=== PATIENT | female | born 1955 | race Caucasian/White ===

== ENCOUNTER 2017-08-12 12:01 | Emergency (ER) | payer OTHER ==
[2017-08-12 13:09] LABS: #Eosinphils 0.2 thou/uL (0.0-0.7); #Lymphocytes 1.3 thou/uL (1.20-3.40); #Monocytes 0.6 thou/uL (0.11-0.59); #Neutrophils 4.8 thou/uL (1.40-6.50); %Basophils 0.3 % (0.0-1.0); %Eosinophils 2.4 % (0.0-10.0); %Lymphocytes 18.4 % (21.0-51.0); %Monocytes 8.2 % (0.0-10.0); %Neutrophils 70.6 % (42.0-75.0); Mean Corpuscular HGB CONC 34.2 g/dL (32.0-36.0); Mean Corpuscular Hemoglobin 30.9 pg (27.0-31.0); Mean Corpuscular Volume 90.3 fl (81.0-99.0); Mean Platelet Volume 7.6 fL (7.4-10.4); Platelet Count 202 thou/uL (130-400); RBC Distribution Width 12.6 % (11.5-14.5); Red Blood Cell (RBC) Count 5.82 mill/uL (4.20-5.40); White Blood Cell (WBC) Count 6.8 thou/uL (4.8-10.8)
[2017-08-12] MEDS ORDERED: Dicyclomine 20 MG TAB ONE ×2 (13:17→13:24)
[2017-08-12] MEDS ORDERED: Ondansetron HCl/PF 4 MG/2 ML Vial ONE (13:17)
[2017-08-12 13:27] LABS: Lactic Acid 1.2 mmol/L (0.5-2.2)
[2017-08-12 13:32] LABS: ALT (SGPT) 31 U/L (8-55); AST (SGOT) 40 U/L (5-34); Albumin 3.9 g/dL (3.4-4.8); Alkaline Phosphatase 101 U/L (40-150); Anion Gap 17 mmol/L (10-20); BUN (Urea Nitrogen) 13 mg/dL (9.8-20.1); Bilirubin, Total 0.7 mg/dL (0.2-1.2); Calc. Creatinine Clearance 0 mL/min (70-130); Calcium 9.6 mg/dL (7.8-10.44); Carbon Dioxide 20 mmol/L (23-31); Chloride 102 mmol/L (98-107); Estimated GFR-MDRD 75; Globulin 3.5 g/dL (2.4-3.5); Glucose 118 mg/dL (80-115); Lipase 13 U/L (8-78); Potassium 3.6 mmol/L (3.5-5.1); Protein, Total 7.4 g/dL (6.0-8.3); Sodium 135 mmol/L (136-145)
--- NOTE | 2017-08-12 14:46 | CT ---
CT ABDOMEN AND PELVIS WITH IV CONTRAST: 08/12/2017 HISTORY: Lower abdominal pain. Diarrhea. The patient also complains of nausea and bodyaches. COMPARISON: 02/18/2013 FINDINGS: There is minimal linear scarring versus atelectasis in the right lung base. The lung bases are other downey clear. There is a moderate sized hiatal hernia again present. The duodenal diverticula again involves the t hird portion of the duodenum. Post cholecystectomy changes are noted. The spleen, pancrease, bilateral adrenal glands, kidneys, and decompressed urinary bladder demonstrat e a normal CT appearance. There is colonic diverticulosis. Vascular calcifications are seen in the abdominal aorta and iliac arteries. A small fat-containing umbilical hernia is again noted. Surgical clips are seen at the cecal apex. There is no free fluid, fluid collection, or lymphadenopathy seen in the abdomen or pelvis. The prev iously noted wall thickening involving the colon is not seen on the current study. Degenerative willis ges are seen in the spine. IMPRESSION: 1. No acute findings are seen in the abdomen or pelvis. 2. Stable, moderate sized hiatal hernia. 3. Colonic diverticulosis. 4. Fat containing umbilical hernia. 5. Duodenal diverticula. 6. Cholecystectomy. POS: [facility]
== END 2017-08-12 14:55 | disposition home or self-care (01) ==
LOC: ERS 12:01
DX: R19.7 Diarrhea, unspecified (principal); R10.31 Right lower quadrant pain; E11.9 Type 2 diabetes mellitus without complications; I10 Essential (primary) hypertension; E11.40 Type 2 diabetes mellitus with diabetic neuropathy, unspecified; F17.210 Nicotine dependence, cigarettes, uncomplicated; Z79.899 Other long term (current) drug therapy
CPT/HCPCS: 36415; 74177; 80053; 83605; 83690; 85025; 96361; 96374; J2405

== ENCOUNTER 2018-02-16 20:30 | Outpatient (CLI) | payer OTHER | END 2018-02-16 20:31 | disposition home or self-care (01) | LOC: SLEEPLAB 20:30 | PROVIDERS: ATTEND Student in an Organized Health Care Education/Training Program | DX: G47.33 Obstructive sleep apnea (adult) (pediatric) (principal); G25.81 Restless legs syndrome; G47.61 Periodic limb movement disorder; R53.83 Other fatigue; R51 Headache; R06.83 Snoring; G47.10 Hypersomnia, unspecified; G47.00 Insomnia, unspecified; F41.9 Anxiety disorder, unspecified; J44.9 Chronic obstructive pulmonary disease, unspecified; I10 Essential (primary) hypertension; R00.0 Tachycardia, unspecified; E66.9 Obesity, unspecified; Z68.38 Body mass index [BMI] 38.0-38.9, adult | CPT/HCPCS: 95811 ==

== ENCOUNTER 2018-03-08 14:18 | Outpatient (CLI) | payer OTHER ==
--- NOTE | 2018-03-08 16:32 | RAD ---
TWO VIEWS CHEST: Date: 03-08-18 Provided Clinical History: Dyspnea. FINDINGS: Comparison 01-04-10. Cardiac and mediastinal silhouette is within normal limits. Vascular calcification involves the aorti c arch. Moderate to large hiatal hernia is again seen. The lungs appear clear. No pleural fluid or pn eumothorax apparent. Degenerative changes are seen involving the thoracic spine. IMPRESSION: 1. No evidence for an acute cardiopulmonary process. 2. Hiatal hernia. 3. Atherosclerosis. POS: [facility]
== END 2018-03-08 14:19 | disposition home or self-care (01) ==
LOC: RAD 14:18
PROVIDERS: ATTEND Internal Medicine Pulmonary Disease
DX: R06.00 Dyspnea, unspecified (principal); K44.9 Diaphragmatic hernia without obstruction or gangrene; I70.0 Atherosclerosis of aorta
CPT/HCPCS: 71046

== ENCOUNTER 2018-04-26 16:24 | Emergency (ER) | payer OTHER ==
[2018-04-26] MEDS ORDERED: Diazepam 5 MG TAB ONE (18:05)
[2018-04-26] MEDS ORDERED: Ondansetron ODT 4 MG TAB ONE (18:05)
[2018-04-26] MEDS ORDERED: Dexamethasone 10 MG/ML VIAL ONE (18:06)
[2018-04-26] MEDS ORDERED: Morphine 10 MG/ML VIAL ONE (18:06)
--- NOTE | 2018-04-26 18:57 | ULT ---
LEFT LOWER EXTREMITY VENOUS DUPLEX EXAM: 04/26/18 HISTORY: Left lower extremity pain. Real arminda color doppler evaluation of the left lower extremity was performed from groin to calf. This includes evaluation of common femoral, superficial, and profunda femoral, saphenous, popliteal and p osterior tibial veins. This shows a patent deep venous system. There is normal compressibility and au gmentation. There is no evidence of DVT. IMPRESSION: No evidence of DVT of the left lower extremity. POS: [facility]
== END 2018-04-26 18:40 | disposition home or self-care (01) ==
LOC: ERS 16:24
DX: M54.16 Radiculopathy, lumbar region (principal); E11.40 Type 2 diabetes mellitus with diabetic neuropathy, unspecified; I10 Essential (primary) hypertension; F17.210 Nicotine dependence, cigarettes, uncomplicated; Z79.899 Other long term (current) drug therapy
CPT/HCPCS: 96372; J1100; J2270; Q0162

== ENCOUNTER 2018-06-22 09:23 | Outpatient (CLI) | payer OTHER ==
--- NOTE | 2018-06-22 12:13 | MRI ---
MRI LUMBAR SPINE NONCONTRAST: 06/22/2018 HISTORY: A 63-year-old female with M54.16, lumbar radiculopathy and chronic low back pain (radiating to left l ower extremity). COMPARISON: 04/28/2016 FINDINGS: For the purposes of this report, it will be assumed that there are five lumbar type vertebrae. There is a new finding of modic type I endplate marrow edema at the anterior-inferior corner of the T 12 vertebral body, the anterior-inferior corner of the L1 vertebral body, and the anterior-superior c orner of the L2 vertebral body, new since the previous MRI. Vertebral body heights are maintained. No major scoliosis. Disk space narrowing is somewhat severe at L4-L5, where there is endplate irregu larity and modic type II changes. Disk space narrowing is mild at L5-S1 and at T12-L1. The disk spa ce narrowing is mild to moderate at L2-L3 and L3-L4. The distribution of disk space narrowing is sim ilar to that of the prior MRI. The conus medullaris terminates at L1. T12-L1: Minimal disk bulge. Otherwise normal. L1-L2: Mild to moderate disk bulge. No significant central spinal canal stenosis. Posterior epidur al fat pad. Mild to moderate thecal sac stenosis. Moderate bilateral neural foraminal stenosis. L2-L3: Mild diffuse disk bulge. Mild ligamentum flavum thickening. Predominantly mild degenerative facet changes, left greater than right. Mild central spinal canal stenosis. Posterior epidural fat pad. Moderate thecal sac stenosis. Mild to moderate bilateral neural foraminal stenosis, left grea ter than right. No significant interval change. L3-L4: Mild diffuse disk bulge. Moderate bilateral degenerative facet changes. Mild right neural f oraminal stenosis. Mild to moderate left neural foraminal stenosis. Mild central spinal canal steno sis. Posterior epidural fat pad. Mild to moderate thecal sac stenosis. No interval change. L4-L5: Diffuse disk bulge-broad osteophytic bar complex. Mild right neural foraminal stenosis. Mod erate left neural foraminal stenosis. Mild central spinal canal stenosis. Posterior epidural fat pa d. Mild to moderate thecal sac stenosis. Lateral recess stenosis bilaterally. No significant inter pato change. L5-S1: Severe bilateral degenerative facet disease. No significant right neural foraminal stenosis. Moderate left neural foraminal stenosis. Mild lateral recess stenosis bilaterally and mild central spinal canal stenosis. No significant interval change. IMPRESSION: 1. Lumbar spondylosis with multilevel degenerative disk disease of varying degrees (greatest at L4-L 5, moderate), and facet osteoarthrosis (worst at L5-S1, severe). 2. Varying degrees of central, neural foraminal, and lateral recess stenosis, as described above, bu t none severe. 3. Interval development of modic type I endplate marrow changes at T12-L1 and L1-L2. 4. No other interval change since 04/28/2016. RICARDO Young POS: [facility]
== END 2018-06-22 09:24 | disposition home or self-care (01) ==
LOC: BICMRI 09:23
PROVIDERS: ATTEND Neurological Surgery
DX: M47.26 Other spondylosis with radiculopathy, lumbar region (principal); M47.27 Other spondylosis with radiculopathy, lumbosacral region; M48.061 Spinal stenosis, lumbar region without neurogenic claudication
CPT/HCPCS: 72148

== ENCOUNTER 2019-02-20 13:18 | Emergency (ER) | payer OTHER ==
--- NOTE | 2019-02-20 14:13 | RAD ---
XR Forearm Lt 2 View STANDARD: 02/20/2019 1:22 PM CLINICAL INDICATION: Fall with pain COMPARISON: None. FINDINGS: Fracture:There is subtle fracture lucency of the articular surface of the distal radius, and underlyi ng the radial styloid. Arthropathy:Moderate osteoarthritis is seen, at the radial aspect of the wrist and base of hand. Chronic appearing periosteal irregularity of the ulnar diaphysis. Correlate for history of prior inju ry. Incidental findings:None of significance. IMPRESSION: Distal radial fracture. Recommend dedicated left wrist radiograph series for further evaluation.
--- NOTE | 2019-02-20 14:14 | RAD ---
Exam: XR Wrist 3 Lt View STANDARD HISTORY: Swelling and pain to left wrist. Patient injured left wrist after a fall. COMPARISON: None FINDINGS: There is a fracture involving the radial styloid process with trace lateral displacement of the fract ure fragment with intra-articular extension of the fracture and trace intra-articular step-off. No additional fracture is appreciated, and there is no evidence of dislocation. Prominent osteoarthritis involves the first carpal metacarpal joint. Mild subcutaneous soft tissue swelling is seen about the wrist. IMPRESSION: Fracture of the radial styloid process which does result in intra-articular extension of the fracture .
[2019-02-20] MEDS ORDERED: HYDROcodone/Acetaminophen 7.5/325 mg Tablet ONE (14:57)
[2019-02-20] MEDS ORDERED: Ketorolac Tromethamine 30 MG/ML VIAL ONE (14:57)
== END 2019-02-20 16:07 | disposition home or self-care (01) ==
LOC: ERS 13:18
DX: S52.512A Displaced fracture of left radial styloid process, initial encounter for closed fracture (principal); Z71.6 Tobacco abuse counseling; E11.9 Type 2 diabetes mellitus without complications; I10 Essential (primary) hypertension; E11.40 Type 2 diabetes mellitus with diabetic neuropathy, unspecified; F17.210 Nicotine dependence, cigarettes, uncomplicated; Z79.899 Other long term (current) drug therapy; W01.0XXA Fall on same level from slipping, tripping and stumbling without subsequent striking against object, initial encounter
CPT/HCPCS: 29125; 96372; 99406; J1885

== ENCOUNTER 2020-03-12 15:18 | Outpatient (CLI) | payer MEDICARE, MEDICAID ==
--- NOTE | 2020-03-12 15:47 | RAD ---
EXAM: 3 views of the left knee HISTORY: Knee pain COMPARISON: None FINDINGS: A small knee effusion is seen. There is no evidence of acute fracture or dislocation. Mild tricompartmental degenerative changes are seen. No soft tissue swelling is present. IMPRESSION: Mild left knee osteoarthritis
== END 2020-03-12 15:19 | disposition home or self-care (01) ==
LOC: BICRAD 15:18
PROVIDERS: ATTEND Registered Nurse
DX: M25.562 Pain in left knee (principal); M17.12 Unilateral primary osteoarthritis, left knee

== ENCOUNTER 2021-07-21 21:02 | Emergency (ER) | payer MEDICARE, MEDICAID ==
[2021-07-21] MEDS ORDERED: Ondansetron PF 4 MG/2 ML Vial ONE ×2 (21:20→22:27)
[2021-07-21 21:40] LABS: #Basophils 0.1 thou/uL (0.0-0.2); #Lymphocytes 1.2 thou/uL (1.20-3.40); #Monocytes 0.7 thou/uL (0.11-0.59); #Neutrophils 11.2 thou/uL (1.40-6.50); %Basophils 0.4 % (0.0-1.0); %Eosinophils 0.3 % (0.0-10.0); %Lymphocytes 9.1 % (21.0-51.0); %Neutrophils 85.2 % (42.0-75.0); Hemoglobin 14.9 g/dL (12.0-16.0); Mean Corpuscular HGB CONC 32.6 g/dL (32.0-36.0); Mean Corpuscular Hemoglobin 31.4 pg (27.0-31.0); Mean Corpuscular Volume 96.2 fL (78.0-98.0); Platelet Count 235 thou/uL (130-400); RBC Distribution Width 13.4 % (11.5-14.5); Red Blood Cell (RBC) Count 4.75 mill/uL (4.20-5.40); White Blood Cell (WBC) Count 13.1 thou/uL (4.8-10.8)
[2021-07-21 21:59] LABS: ALT (SGPT) 11 U/L (8-55); AST (SGOT) 15 U/L (5-34); Albumin 3.5 g/dL (3.4-4.8); Alkaline Phosphatase 117 U/L (40-110); Anion Gap 13 mmol/L (10-20); BUN (Urea Nitrogen) 12 mg/dL (9.8-20.1); Bilirubin, Total 0.7 mg/dL (0.2-1.2); Calc. Creatinine Clearance 0 mL/min (70-130); Calcium 9.3 mg/dL (7.8-10.44); Carbon Dioxide 26 mmol/L (23-31); Chloride 104 mmol/L (98-107); Globulin 3.7 g/dL (2.4-3.5); Glucose 126 mg/dL (80-115); Lipase 17 U/L (8-78); Potassium 3.4 mmol/L (3.5-5.1); Protein, Total 7.2 g/dL (5.8-8.1); Sodium 140 mmol/L (136-145)
[2021-07-21 22:09] LABS: Bacteria/HPF None Seen HPF (None Seen); Bilirubin Negative (Negative); Blood, Urine Negative (Negative); Clarity Turbid (Clear); Glucose, Urine (Dipstick) Normal (Negative); Ketone, Urine 10 mg/dL (Negative); Leukocyte Negative Leu/uL (Negative); Nitrite Negative (Negative); Protein, Urine (Dipstick) 30 mg/dL (Neg-Trace); RBC/HPF 0-3 HPF (0-3); Specific Gravity, Urine 1.016 (1.002-1.036); Squamous Epithelial 0-3 HPF (0-3); Urobilinogen Normal mg/dL (Less than 2); WBC/HPF 0-3 HPF (0-3)
== END 2021-07-21 23:59 | disposition home or self-care (01) ==
LOC: ERS 21:02
DX: A08.4 Viral intestinal infection, unspecified (principal); I10 Essential (primary) hypertension; F17.210 Nicotine dependence, cigarettes, uncomplicated; E11.40 Type 2 diabetes mellitus with diabetic neuropathy, unspecified
CPT/HCPCS: 36415; 36416; 51701; 80053; 81003; 81015; 83605; 83690; 85025; 96374; 96376; J2405

== ENCOUNTER 2021-09-12 22:06 | Emergency (ER) | payer MEDICARE, MEDICAID ==
[~2021-09-12 22:06] MED LIST: Iopamidol-370 76% 500 ML 1 ML ONE
[2021-09-12 23:09] LABS: ALT (SGPT) 10 U/L (8-55); AST (SGOT) 11 U/L (5-34); Albumin 3.8 g/dL (3.4-4.8); Alkaline Phosphatase 126 U/L (40-110); Anion Gap 12 mmol/L (10-20); BUN (Urea Nitrogen) 15 mg/dL (9.8-20.1); Calc. Creatinine Clearance 0 mL/min (70-130); Calcium 9.6 mg/dL (7.8-10.44); Carbon Dioxide 25 mmol/L (23-31); Chloride 103 mmol/L (98-107); Globulin 3.6 g/dL (2.4-3.5); Glucose 121 mg/dL (80-115); Lipase 12 U/L (8-78); Potassium 3.4 mmol/L (3.5-5.1); Protein, Total 7.4 g/dL (5.8-8.1); Sodium 137 mmol/L (136-145)
[2021-09-12 23:10] LABS: Band 5 % (5-11); Hemoglobin 15.8 g/dL (12.0-16.0); Lymphocytes 6 % (21-51); MDiff Complete? YES; Mean Corpuscular HGB CONC 32.2 g/dL (32.0-36.0); Mean Corpuscular Hemoglobin 29.7 pg (27.0-31.0); Mean Corpuscular Volume 92.2 fL (78.0-98.0); Mean Platelet Volume 7.1 fL (7.4-10.4); Monocytes 6 % (0-10); Neutrophil 82 % (42-75); Platelet Count 280 thou/uL (130-400); RBC Distribution Width 13.2 % (11.5-14.5); Red Blood Cell (RBC) Count 5.33 mill/uL (4.20-5.40); White Blood Cell (WBC) Count 21.1 thou/uL (4.8-10.8)
[2021-09-12] MEDS ORDERED: Ondansetron PF 4 MG/2 ML Vial ONE (23:48)
[2021-09-12] MEDS ORDERED: Morphine 4 MG/ML VIAL ONE (23:48)
[2021-09-13 01:14] LABS: Bilirubin Negative (Negative); Blood, Urine Negative (Negative); Clarity Clear (Clear); Glucose, Urine (Dipstick) Normal (Negative); Ketone, Urine Negative (Negative); Leukocyte Negative Leu/uL (Negative); Nitrite Negative (Negative); Protein, Urine (Dipstick) Negative (Neg-Trace); Urobilinogen Normal mg/dL (Less than 2)
[2021-09-13 01:16] LABS: Specific Gravity, Urine Greater than 1.060 (1.002-1.036)
[2021-09-13 02:44] LABS: Lactic Acid 1.1 mmol/L (0.5-2.2)
== END 2021-09-13 03:08 | disposition home or self-care (01) ==
LOC: ERS 22:06
DX: R11.2 Nausea with vomiting, unspecified (principal); R10.10 Upper abdominal pain, unspecified; R10.816 Epigastric abdominal tenderness; R10.812 Left upper quadrant abdominal tenderness; M86.9 Osteomyelitis, unspecified; M06.9 Rheumatoid arthritis, unspecified; I10 Essential (primary) hypertension; E11.40 Type 2 diabetes mellitus with diabetic neuropathy, unspecified; F17.210 Nicotine dependence, cigarettes, uncomplicated
CPT/HCPCS: 36415; 36416; 74177; 80053; 81003; 83605; 83690; 85025; 87040; 87086; 96374; 96375; J2270; J2405; Q9967

== ENCOUNTER 2021-10-22 15:19 | Observation (INO) | payer MEDICARE, MEDICAID ==
[2021-10-22 16:43] LABS: #Basophils 0.1 thou/uL (0.0-0.2); #Lymphocytes 1.3 thou/uL (1.20-3.40); #Monocytes 0.5 thou/uL (0.11-0.59); #Neutrophils 8.9 thou/uL (1.40-6.50); %Basophils 0.6 % (0.0-1.0); %Eosinophils 0.1 % (0.0-10.0); %Lymphocytes 11.8 % (21.0-51.0); %Monocytes 4.4 % (0.0-10.0); %Neutrophils 83.1 % (42.0-75.0); Mean Corpuscular HGB CONC 33.3 g/dL (32.0-36.0); Mean Corpuscular Hemoglobin 30.2 pg (27.0-31.0); Mean Corpuscular Volume 90.8 fL (78.0-98.0); Mean Platelet Volume 7.2 fL (7.4-10.4); Platelet Count 323 thou/uL (130-400); RBC Distribution Width 14.4 % (11.5-14.5); Red Blood Cell (RBC) Count 5.29 mill/uL (4.20-5.40); White Blood Cell (WBC) Count 10.7 thou/uL (4.8-10.8)
[2021-10-22 17:16] LABS: ALT (SGPT) 11 U/L (8-55); AST (SGOT) 16 U/L (5-34); Albumin 3.7 g/dL (3.4-4.8); Alkaline Phosphatase 127 U/L (40-110); Anion Gap 14 mmol/L (10-20); BUN (Urea Nitrogen) 9 mg/dL (9.8-20.1); Bilirubin, Total 0.8 mg/dL (0.2-1.2); CK (CPK) 30 U/L (29-168); Calc. Creatinine Clearance 0 mL/min (70-130); Calcium 9.7 mg/dL (7.8-10.44); Carbon Dioxide 31 mmol/L (23-31); Chloride 101 mmol/L (98-107); Globulin 3.7 g/dL (2.4-3.5); Glucose 147 mg/dL (80-115); Magnesium 1.7 mg/dL (1.6-2.6); Potassium 3.1 mmol/L (3.5-5.1); Protein, Total 7.4 g/dL (5.8-8.1); Sodium 143 mmol/L (136-145)
[2021-10-22] MEDS ORDERED: Potassium Chloride 20 MEQ TAB ONE (18:12)
[2021-10-22] MEDS ORDERED: Magnesium 2 GM/50 ML(in water) 2 GM in Premix Bag 1 BAG IVPB SCH (18:30)
[2021-10-22 19:38] LABS: Bilirubin Negative (Negative); Blood, Urine Negative (Negative); Clarity Clear (Clear); Glucose, Urine (Dipstick) Normal (Negative); Ketone, Urine 10 mg/dL (Negative); Leukocyte Negative Leu/uL (Negative); Nitrite Negative (Negative); Protein, Urine (Dipstick) 30 mg/dL (Neg-Trace); RBC/HPF 0-3 HPF (0-3); Specific Gravity, Urine 1.015 (1.002-1.036); Squamous Epithelial 0-3 HPF (0-3); Urobilinogen Normal mg/dL (Less than 2); WBC/HPF 0-3 HPF (0-3); pH, Urine 8.5 (5.0-9.0)
[2021-10-22 19:48] LABS: Bacteria/HPF Rare-Few HPF (None Seen)
[2021-10-22] MEDS ORDERED: Pantoprazole 40 MG VIAL ONE (20:14)
[2021-10-22] MEDS ORDERED: Magnesium Sulfate 2 GM in Sodium Chloride 0.9% 100 ML IVPB SCH (20:15)
[2021-10-22] MEDS ORDERED: HumaLOG 300 UNITS/3 ML VIAL SC PRN ×2 (22:28)
[2021-10-22] MEDS ORDERED: Dextrose 5% in Water 1,000 ML IV PRN (22:28)
[2021-10-22] MEDS ORDERED: Dextrose 50% Abboject 50 ML SYRINGE SLOW IVP PRN (22:28)
[2021-10-22] MEDS ORDERED: Ondansetron ODT 4 MG TAB PO PRN (22:28)
[2021-10-22] MEDS ORDERED: Lactated Ringer's 1,000 ML IV SCH (22:45)
[2021-10-22 22:52] LABS: Amphetamine Not Detected (NotDetected); Barbiturates Screen Not Detected (NotDetected); Benzodiazepine Screen Not Detected (NotDetected); Cocaine Metabolite Screen Not Detected (NotDetected); Methadone Not Detected (NotDetected); Methamphetamine Not Detected (NotDetected); Opiate Screen Detected (NotDetected); Oxycodone Screen Not Detected (NotDetected); Phencyclidine (PCP) Not Detected (NotDetected); THC/Cannabinoid Screen Not Detected (NotDetected); Tricyclic Screen Not Detected (NotDetected)
[2021-10-22 23:47] VITALS: BMI 25.7
[2021-10-23 04:51] LABS: #Eosinphils 0.1 thou/uL (0.0-0.7); #Lymphocytes 1.8 thou/uL (1.20-3.40); #Monocytes 0.6 thou/uL (0.11-0.59); #Neutrophils 8.9 thou/uL (1.40-6.50); %Basophils 0.4 % (0.0-1.0); %Eosinophils 0.5 % (0.0-10.0); %Monocytes 5.4 % (0.0-10.0); %Neutrophils 77.7 % (42.0-75.0); Hemoglobin 14.5 g/dL (12.0-16.0); Mean Corpuscular HGB CONC 32.9 g/dL (32.0-36.0); Mean Corpuscular Hemoglobin 30.8 pg (27.0-31.0); Mean Corpuscular Volume 93.7 fL (78.0-98.0); Mean Platelet Volume 7.2 fL (7.4-10.4); Platelet Count 269 thou/uL (130-400); RBC Distribution Width 14.3 % (11.5-14.5); White Blood Cell (WBC) Count 11.4 thou/uL (4.8-10.8)
[2021-10-23 05:10] LABS: ALT (SGPT) 9 U/L (8-55); AST (SGOT) 14 U/L (5-34); Albumin 3.2 g/dL (3.4-4.8); Alkaline Phosphatase 102 U/L (40-110); Anion Gap 11 mmol/L (10-20); BUN (Urea Nitrogen) 8 mg/dL (9.8-20.1); Bilirubin, Total 0.7 mg/dL (0.2-1.2); Calc. Creatinine Clearance 82 mL/min (70-130); Calcium 8.6 mg/dL (7.8-10.44); Carbon Dioxide 25 mmol/L (23-31); Chloride 106 mmol/L (98-107); Glucose 108 mg/dL (80-115); Magnesium 2.1 mg/dL (1.6-2.6); Potassium 3.1 mmol/L (3.5-5.1); Protein, Total 6.2 g/dL (5.8-8.1); Sodium 139 mmol/L (136-145)
[2021-10-23 05:30] LABS: Phosphorus 3.2 mg/dL (2.3-4.7)
[2021-10-23] MEDS ORDERED: Potassium Chloride 20 MEQ in Premix Bag 1 BAG IVPB SCH (07:00)
[2021-10-23 07:55] VITALS: BP 174/97; TEMP 98.2
[2021-10-23] MEDS ORDERED: Pantoprazole 40 MG VIAL IVP SCH (09:00)
[2021-10-23] MEDS ORDERED: Lisinopril 10 MG TAB PO SCH (09:00)
== END 2021-10-23 10:45 | disposition left against medical advice (07) ==
LOC: ERS 15:19 → 2SW 20:33
PROVIDERS: ADMIT Student in an Organized Health Care Education/Training Program; ATTEND Student in an Organized Health Care Education/Training Program
DX: K92.0 Hematemesis (principal); Z53.29 Procedure and treatment not carried out because of patient's decision for other reasons; R41.82 Altered mental status, unspecified; E83.42 Hypomagnesemia; E87.6 Hypokalemia; M79.7 Fibromyalgia; Z20.822 Contact with and (suspected) exposure to COVID-19; E11.9 Type 2 diabetes mellitus without complications; E78.5 Hyperlipidemia, unspecified; I10 Essential (primary) hypertension; F17.210 Nicotine dependence, cigarettes, uncomplicated; Z79.899 Other long term (current) drug therapy; Z88.5 Allergy status to narcotic agent
CPT/HCPCS: 70450; 71045; 80053; 80306; 82550; 82962; 83735 ×2; 84100; 84484; 85025; 93005; 96361; 96365; 96375; 97139 ×4; 99285; G0378 ×3; U0003; U0005; 36415; 36416; 81003; 81015; 84443; C9113; J3475; J3490; J7120

== ENCOUNTER 2021-12-12 13:41 | Outpatient (CLI) | payer MEDICARE, MEDICAID | END 2021-12-12 13:42 | disposition home or self-care (01) | LOC: LABBT 13:41 | PROVIDERS: ATTEND Internal Medicine Gastroenterology | DX: Z01.812 Encounter for preprocedural laboratory examination (principal); Z20.822 Contact with and (suspected) exposure to COVID-19 | CPT/HCPCS: 87811 ==

== ENCOUNTER → 2021-12-17 | Day surgery (SDC) | payer MEDICARE, MEDICAID | END | disposition home or self-care (01) | LOC: SDC 08:04 | PROVIDERS: ATTEND Internal Medicine Gastroenterology | DX: K44.9 Diaphragmatic hernia without obstruction or gangrene (principal); R11.2 Nausea with vomiting, unspecified; Z88.5 Allergy status to narcotic agent | CPT/HCPCS: 91010 ==

== ENCOUNTER 2021-12-24 14:02 | Outpatient (CLI) | payer MEDICARE, OTHER | END 2021-12-24 14:03 | disposition home or self-care (01) | LOC: ULT 14:02 | PROVIDERS: ATTEND Physician Assistant Medical | DX: K21.9 Gastro-esophageal reflux disease without esophagitis (principal); R60.0 Localized edema ==

== ENCOUNTER 2022-01-05 07:43 | Outpatient (CLI) | payer MEDICARE, OTHER | END 2022-01-05 07:44 | disposition home or self-care (01) | LOC: NM 07:43 | PROVIDERS: ATTEND Internal Medicine Gastroenterology | DX: R11.2 Nausea with vomiting, unspecified (principal) | CPT/HCPCS: 78264; A9541 ==

== ENCOUNTER 2022-01-19 14:37 | Outpatient (CLI) | payer MEDICARE, MEDICAID | END 2022-01-19 14:38 | disposition home or self-care (01) | LOC: LABBT 14:37 | PROVIDERS: ATTEND Internal Medicine Gastroenterology | DX: R11.2 Nausea with vomiting, unspecified (principal); Z20.822 Contact with and (suspected) exposure to COVID-19 | CPT/HCPCS: 87811 ==

== ENCOUNTER 2022-01-22 09:33 | Outpatient (CLI) | payer MEDICARE, MEDICAID | END 2022-01-22 09:34 | disposition home or self-care (01) | LOC: RAD 09:33 | PROVIDERS: ATTEND Internal Medicine Gastroenterology | DX: R11.2 Nausea with vomiting, unspecified (principal); R63.4 Abnormal weight loss; K44.9 Diaphragmatic hernia without obstruction or gangrene; K21.9 Gastro-esophageal reflux disease without esophagitis; K57.10 Diverticulosis of small intestine without perforation or abscess without bleeding; K22.89 Other specified disease of esophagus | CPT/HCPCS: 74220 ==

== ENCOUNTER 2022-02-03 23:07 | Emergency (ER) | payer MEDICARE, OTHER ==
[2022-02-04] MEDS ORDERED: Ketorolac Tromethamine 30 MG/ML VIAL ONE (00:43)
[2022-02-04] MEDS ORDERED: Vancomycin 1 GM/200 ML BAG ONE (00:54)
[2022-02-04 01:12] LABS: #Eosinphils 0.4 thou/uL (0.0-0.7); #Lymphocytes 2.7 thou/uL (1.20-3.40); #Monocytes 0.4 thou/uL (0.11-0.59); #Neutrophils 3.4 thou/uL (1.40-6.50); %Basophils 0.5 % (0.0-1.0); %Eosinophils 5.5 % (0.0-10.0); %Lymphocytes 39.4 % (21.0-51.0); %Monocytes 5.6 % (0.0-10.0); Hemoglobin 14.4 g/dL (12.0-16.0); Mean Corpuscular HGB CONC 32.8 g/dL (32.0-36.0); Mean Corpuscular Hemoglobin 31.6 pg (27.0-31.0); Mean Corpuscular Volume 96.2 fL (78.0-98.0); Mean Platelet Volume 7.5 fL (7.4-10.4); Platelet Count 282 thou/uL (130-400); RBC Distribution Width 12.8 % (11.5-14.5); Red Blood Cell (RBC) Count 4.55 mill/uL (4.20-5.40); White Blood Cell (WBC) Count 6.9 thou/uL (4.8-10.8)
[2022-02-04 01:33] LABS: ALT (SGPT) 11 U/L (8-55); AST (SGOT) 15 U/L (5-34); Albumin 3.4 g/dL (3.4-4.8); Alkaline Phosphatase 150 U/L (40-110); Anion Gap 11 mmol/L (10-20); BUN (Urea Nitrogen) 7 mg/dL (9.8-20.1); Bilirubin, Total 0.4 mg/dL (0.2-1.2); Calc. Creatinine Clearance 0 mL/min (70-130); Carbon Dioxide 29 mmol/L (23-31); Chloride 101 mmol/L (98-107); Estimated GFR 92; Globulin 3.6 g/dL (2.4-3.5); Glucose 122 mg/dL (80-115); Potassium 3.9 mmol/L (3.5-5.1); Sodium 137 mmol/L (136-145)
== END 2022-02-04 02:14 | disposition home or self-care (01) ==
LOC: ERS 23:07
DX: L03.115 Cellulitis of right lower limb (principal); E11.40 Type 2 diabetes mellitus with diabetic neuropathy, unspecified; I10 Essential (primary) hypertension
CPT/HCPCS: 36415; 80053; 85025; 86140; 87040; 96365; 96375; J1885; J3370

== ENCOUNTER 2022-02-14 22:37 | Emergency (ER) | payer MEDICARE, OTHER ==
[2022-02-14] MEDS ORDERED: Ondansetron PF 4 MG/2 ML Vial ONE (23:08)
[2022-02-14 23:22] LABS: #Lymphocytes 1.1 thou/uL (1.20-3.40); #Monocytes 0.9 thou/uL (0.11-0.59); #Neutrophils 13.6 thou/uL (1.40-6.50); %Basophils 0.2 % (0.0-1.0); %Eosinophils 0.2 % (0.0-10.0); %Lymphocytes 7.1 % (21.0-51.0); %Monocytes 5.6 % (0.0-10.0); %Neutrophils 86.9 % (42.0-75.0); Hemoglobin 17.5 g/dL (12.0-16.0); Mean Corpuscular HGB CONC 33.3 g/dL (32.0-36.0); Mean Corpuscular Hemoglobin 32.5 pg (27.0-31.0); Mean Corpuscular Volume 97.6 fL (78.0-98.0); Mean Platelet Volume 7.8 fL (7.4-10.4); Platelet Count 279 thou/uL (130-400); RBC Distribution Width 13.1 % (11.5-14.5); White Blood Cell (WBC) Count 15.6 thou/uL (4.8-10.8)
[2022-02-14 23:47] LABS: ALT (SGPT) 10 U/L (8-55); AST (SGOT) 27 U/L (5-34); Albumin 3.8 g/dL (3.4-4.8); Alkaline Phosphatase 163 U/L (40-110); Anion Gap 23 mmol/L (10-20); BUN (Urea Nitrogen) 9 mg/dL (9.8-20.1); Calc. Creatinine Clearance 0 mL/min (70-130); Calcium 9.7 mg/dL (7.8-10.44); Carbon Dioxide 22 mmol/L (23-31); Chloride 102 mmol/L (98-107); Estimated GFR 92; Globulin 4.1 g/dL (2.4-3.5); Glucose 166 mg/dL (80-115); Lipase 10 U/L (8-78); Potassium 4.7 mmol/L (3.5-5.1); Protein, Total 7.9 g/dL (5.8-8.1); Sodium 142 mmol/L (136-145)
[2022-02-15 00:21] LABS: CKMB 1.8 ng/mL (0-6.6)
== END 2022-02-14 23:25 | disposition left against medical advice (07) ==
LOC: ERS 22:37
DX: R11.10 Vomiting, unspecified (principal); R10.9 Unspecified abdominal pain; F17.210 Nicotine dependence, cigarettes, uncomplicated; E11.9 Type 2 diabetes mellitus without complications; I10 Essential (primary) hypertension
CPT/HCPCS: 36415; 74177; 80053; 82553; 83690; 84484; 85025; J2405; Q9967

== ENCOUNTER 2022-05-26 18:37 | Emergency (ER) | payer MEDICARE, MEDICAID ==
[2022-05-26 19:51] LABS: #Eosinphils 0.2 thou/uL (0.0-0.7); #Lymphocytes 1.9 thou/uL (1.20-3.40); #Monocytes 0.7 thou/uL (0.11-0.59); #Neutrophils 6.5 thou/uL (1.40-6.50); %Basophils 0.4 % (0.0-1.0); %Eosinophils 2.3 % (0.0-10.0); %Lymphocytes 20.5 % (21.0-51.0); %Neutrophils 69.7 % (42.0-75.0); Hemoglobin 14.5 g/dL (12.0-16.0); Mean Corpuscular HGB CONC 33.7 g/dL (32.0-36.0); Mean Corpuscular Hemoglobin 31.9 pg (27.0-31.0); Mean Corpuscular Volume 94.7 fl (78.0-98.0); Mean Platelet Volume 7.8 fL (7.4-10.4); Platelet Count 205 10x3/uL (130-400); RBC Distribution Width 13.3 % (11.5-14.5); Red Blood Cell (RBC) Count 4.54 mill/uL (4.20-5.40); White Blood Cell (WBC) Count 9.3 10x3/uL (4.8-10.8)
[2022-05-26 20:06] LABS: ALT (SGPT) 11 U/L (8-55); AST (SGOT) 15 U/L (5-34); Albumin 3.5 g/dL (3.4-4.8); Alkaline Phosphatase 117 U/L (40-110); Anion Gap 11 mmol/L (10-20); BUN (Urea Nitrogen) 8 mg/dL (9.8-20.1); Bilirubin, Total 0.6 mg/dL (0.2-1.2); Calc. Creatinine Clearance 0 mL/min (70-130); Carbon Dioxide 30 mmol/L (23-31); Chloride 99 mmol/L (98-107); Estimated GFR 94; Globulin 3.4 g/dL (2.4-3.5); Glucose 85 mg/dL (80-115); Potassium 3.6 mmol/L (3.5-5.1); Protein, Total 6.9 g/dL (5.8-8.1); Sodium 136 mmol/L (136-145)
[2022-05-26] MEDS ORDERED: Piperacillin/Tazobactam 4.5 GM VIAL ONE (21:51)
[2022-05-26] MEDS ORDERED: Vancomycin 1 GM/200 ML (FROZEN) BAG ONE (21:51)
[2022-05-26 22:37] LABS: Bilirubin Negative (Negative); Blood, Urine Negative (Negative); Clarity Clear (Clear); Glucose, Urine (Dipstick) Normal (Negative); Ketone, Urine Negative (Negative); Leukocyte Negative Leu/uL (Negative); Nitrite Negative (Negative); Protein, Urine (Dipstick) 10 mg/dL (Neg-Trace); Specific Gravity, Urine 1.024 (1.002-1.036); Urobilinogen 3 mg/dL (Less than 2)
[2022-05-26] MEDS ORDERED: Ibuprofen 800 MG TAB ONE (23:13)
[2022-05-27] MEDS ORDERED: HYDROcodone/Acetaminophen 5/325 mg Tablet ONE (01:10)
== END 2022-05-27 01:37 | disposition short-term general hospital (02) ==
LOC: ERS 18:37
DX: T81.49XA Infection following a procedure, other surgical site, initial encounter (principal); E11.9 Type 2 diabetes mellitus without complications; I10 Essential (primary) hypertension; F17.210 Nicotine dependence, cigarettes, uncomplicated; Z79.899 Other long term (current) drug therapy
CPT/HCPCS: 36415; 80053; 81003; 83605; 85025; 86140; 87040; 87077; 87149; 87186; 96374; 96375; J2543; J3370-JW

== ENCOUNTER 2022-09-02 14:07 | Inpatient (IN) | payer MEDICARE, MEDICAID ==
[2022-09-02] MEDS ORDERED: Acetaminophen 325 MG TAB PO PRN (17:54)
[2022-09-02] MEDS ORDERED: Ondansetron PF 4 MG/2 ML Vial IVP PRN (17:54)
[2022-09-02] MEDS ORDERED: Dextrose 50% Abboject 50 ML SYRINGE SLOW IVP PRN (17:54)
[2022-09-02] MEDS ORDERED: Dextrose 5% in Water 1,000 ML IV PRN (17:54)
[2022-09-02] MEDS ORDERED: Ondansetron ODT 4 MG TAB PO PRN (17:54)
[2022-09-02] MEDS ORDERED: HumaLOG 300 UNITS/3 ML VIAL SC PRN ×2 (17:54)
[2022-09-02] MEDS: cefTRIAXone\\ROCEPHIN 2 GM in Sodium Chloride 0.9% 100 ML IVPB SCH (18:20)
[2022-09-02 19:08] VITALS: BMI 23.8
[2022-09-02] MEDS ORDERED: Sulfameth/Trimethoprim DS 800-160mg TAB PO SCH (21:00)
[2022-09-02] MEDS: Phenazopyridine HCl 100 MG TAB PO SCH (21:03)
[2022-09-02] MEDS: Senokot S 8.6-50 MG TAB PO SCH (21:03)
[2022-09-02] MEDS: Sulfameth/Trimethoprim DS 800-160mg TAB PO SCH (21:03)
[2022-09-02] MEDS: Gabapentin 300 MG CAP PO SCH (21:03)
[2022-09-02] MEDS: Atorvastatin Calcium 10 MG TAB PO SCH (21:03)
[2022-09-02] MEDS: HYDROcodone/Acetaminophen 5/325 mg Tablet PO PRN (22:55)
[2022-09-03] MEDS: HYDROcodone/Acetaminophen 5/325 mg Tablet PO PRN ×4 (04:32→21:56)
[2022-09-03 07:12] LABS: #Eosinphils 0.4 thou/uL (0.0-0.7); #Lymphocytes 1.6 thou/uL (1.20-3.40); #Monocytes 0.4 thou/uL (0.11-0.59); %Eosinophils 6.9 % (0.0-10.0); %Lymphocytes 29.8 % (21.0-51.0); %Monocytes 7.5 % (0.0-10.0); %Neutrophils 55.9 % (42.0-75.0); Hemoglobin 12.6 g/dL (12.0-16.0); Mean Corpuscular HGB CONC 33.1 g/dL (32.0-36.0); Mean Corpuscular Hemoglobin 31.9 pg (27.0-31.0); Mean Corpuscular Volume 96.4 fl (78.0-98.0); Mean Platelet Volume 7.3 fL (7.4-10.4); Platelet Count 225 10x3/uL (130-400); RBC Distribution Width 12.9 % (11.5-14.5); Red Blood Cell (RBC) Count 3.96 mill/uL (4.20-5.40); White Blood Cell (WBC) Count 5.4 10x3/uL (4.8-10.8)
[2022-09-03 07:31] LABS: Anion Gap 12 mmol/L (10-20); BUN (Urea Nitrogen) 12 mg/dL (9.8-20.1); Calc. Creatinine Clearance 60 mL/min (70-130); Calcium 8.7 mg/dL (7.8-10.44); Carbon Dioxide 25 mmol/L (23-31); Chloride 103 mmol/L (98-107); Estimated GFR 76; Glucose 107 mg/dL (80-115); Potassium 3.9 mmol/L (3.5-5.1); Sodium 136 mmol/L (136-145)
[2022-09-03] MEDS: Aspirin 81 mg Enteric Coated Tablet PO SCH (09:56)
[2022-09-03] MEDS: Lisinopril 10 MG TAB PO SCH (09:56)
[2022-09-03] MEDS: Phenazopyridine HCl 100 MG TAB PO SCH ×2 (09:57→20:56)
[2022-09-03] MEDS: Gabapentin 300 MG CAP PO SCH ×3 (09:57→20:55)
[2022-09-03] MEDS: Saccharomyces boulardii 250 MG CAP PO SCH (09:57)
[2022-09-03] MEDS: Senokot S 8.6-50 MG TAB PO SCH ×2 (09:57→20:56)
[2022-09-03] MEDS: Sulfameth/Trimethoprim DS 800-160mg TAB PO SCH ×2 (09:57→20:56)
[2022-09-03] MEDS ORDERED: Iopamidol-370 76% 500 ML MDV (1 ML CHARGE) ONE (15:40)
[2022-09-03] MEDS: cefTRIAXone\\ROCEPHIN 2 GM in Sodium Chloride 0.9% 100 ML IVPB SCH (17:23)
[2022-09-03] MEDS: Atorvastatin Calcium 10 MG TAB PO SCH (20:56)
[2022-09-04] MEDS: HYDROcodone/Acetaminophen 5/325 mg Tablet PO PRN ×4 (05:28→22:30)
[2022-09-04] MEDS: Phenazopyridine HCl 100 MG TAB PO SCH ×2 (08:24→20:33)
[2022-09-04] MEDS: Saccharomyces boulardii 250 MG CAP PO SCH (08:24)
[2022-09-04] MEDS: Gabapentin 300 MG CAP PO SCH ×3 (08:24→20:33)
[2022-09-04] MEDS: Lisinopril 10 MG TAB PO SCH (08:24)
[2022-09-04] MEDS: Senokot S 8.6-50 MG TAB PO SCH ×3 (08:25→20:36)
[2022-09-04] MEDS: Sulfameth/Trimethoprim DS 800-160mg TAB PO SCH ×2 (08:25→20:36)
[2022-09-04] MEDS: Aspirin 81 mg Enteric Coated Tablet PO SCH (08:25)
[2022-09-04] MEDS ORDERED: Non-Formulary Item 1 EACH (Tramadol Hcl [Tramadol Hcl Er] 200 MG Tab.Er.24h) PO SCH (09:00)
[2022-09-04] MEDS ORDERED: Lidocaine 1% (PF) 30 ML VIAL SC SCH (10:30)
[2022-09-04] MEDS ORDERED: Lidocaine 1% (PF) 30 ML VIAL ONE (11:45)
[2022-09-04 14:04] LABS: RBC Count-Automated (BF) Greater than 890000 /cu.mm; WBC/Nucleated-Auto (BF) 2976 /cu.mm
[2022-09-04 14:05] LABS: BF Color Red; Body Fluid Source Synovial Fluid; Clarity Cloudy/Turbid (Clear); Tube # EDTA
[2022-09-04 14:50] LABS: BF Segmented Neutrophils 86 %; Cell Count Non Hematic 3 %; Eosinophils 2 %; Lymphocytes 9 %
[2022-09-04] MEDS: cefTRIAXone\\ROCEPHIN 2 GM in Sodium Chloride 0.9% 100 ML IVPB SCH (18:06)
[2022-09-04] MEDS: Atorvastatin Calcium 10 MG TAB PO SCH (20:33)
[2022-09-05] MEDS: HYDROcodone/Acetaminophen 5/325 mg Tablet PO PRN ×4 (03:11→17:23)
[2022-09-05 08:17] LABS: #Eosinphils 0.4 thou/uL (0.0-0.7); #Monocytes 0.4 thou/uL (0.11-0.59); %Basophils 0.5 % (0.0-1.0); %Eosinophils 7.5 % (0.0-10.0); %Lymphocytes 33.7 % (21.0-51.0); %Monocytes 7.5 % (0.0-10.0); %Neutrophils 50.8 % (42.0-75.0); Hemoglobin 12.6 g/dL (12.0-16.0); Mean Corpuscular HGB CONC 34.5 g/dL (32.0-36.0); Mean Corpuscular Hemoglobin 33.4 pg (27.0-31.0); Mean Corpuscular Volume 96.8 fl (78.0-98.0); Mean Platelet Volume 7.1 fL (7.4-10.4); Platelet Count 190 10x3/uL (130-400); RBC Distribution Width 13.1 % (11.5-14.5); Red Blood Cell (RBC) Count 3.78 mill/uL (4.20-5.40); White Blood Cell (WBC) Count 5.8 10x3/uL (4.8-10.8)
[2022-09-05] MEDS: Lisinopril 10 MG TAB PO SCH (08:19)
[2022-09-05] MEDS: Gabapentin 300 MG CAP PO SCH ×2 (08:19→14:16)
[2022-09-05] MEDS: Sulfameth/Trimethoprim DS 800-160mg TAB PO SCH (08:20)
[2022-09-05] MEDS: Senokot S 8.6-50 MG TAB PO SCH (08:20)
[2022-09-05] MEDS: Phenazopyridine HCl 100 MG TAB PO SCH (08:20)
[2022-09-05] MEDS: Saccharomyces boulardii 250 MG CAP PO SCH (08:20)
[2022-09-05] MEDS: Aspirin 81 mg Enteric Coated Tablet PO SCH (08:20)
[2022-09-05 08:28] LABS: Anion Gap 16 mmol/L (10-20); BUN (Urea Nitrogen) 22 mg/dL (9.8-20.1); CRP (Inflammatory) Less than 0.50 mg/dL (= or < 0.5); Calc. Creatinine Clearance 53 mL/min (70-130); Calcium 8.8 mg/dL (7.8-10.44); Carbon Dioxide 18 mmol/L (23-31); Chloride 107 mmol/L (98-107); Estimated GFR 65; Glucose 87 mg/dL (80-115); Potassium 4.6 mmol/L (3.5-5.1); Sodium 136 mmol/L (136-145)
[2022-09-05 17:14] VITALS: BP 128/84; TEMP 98.7
== END 2022-09-05 17:38 | disposition home or self-care (01) | DRG 690 ==
LOC: T4-B 17:13
PROVIDERS: ADMIT Internal Medicine; ATTEND Hospitalist
PROC: 0R9K3ZZ Drainage of Left Shoulder Joint, Percutaneous Approach (ICD-10-PCS; principal; 2022-09-04)
DX: N39.0 Urinary tract infection, site not specified (principal); M75.102 Unspecified rotator cuff tear or rupture of left shoulder, not specified as traumatic; E11.51 Type 2 diabetes mellitus with diabetic peripheral angiopathy without gangrene; I10 Essential (primary) hypertension; F17.210 Nicotine dependence, cigarettes, uncomplicated; E11.42 Type 2 diabetes mellitus with diabetic polyneuropathy; M25.412 Effusion, left shoulder; M12.812 Other specific arthropathies, not elsewhere classified, left shoulder; Z79.899 Other long term (current) drug therapy; Z88.5 Allergy status to narcotic agent
CPT/HCPCS: 36415; 36416; 74176; 80048; 80053; 81003; 81015; 82550; 82945; 84157; 85025; 85060; 86140; 87040; 87070; 87077; 87086; 87186; 87205; 89051; 89060; 94760; 96365; 96375; 97139; J0696; J1650; J1885; J2001; J3490; Q9967

== ENCOUNTER 2022-09-13 12:07 | Emergency (ER) | payer MEDICARE, MEDICAID ==
[2022-09-13] MEDS ORDERED: Ketorolac Tromethamine 30 MG/ML VIAL ONE (13:36)
[2022-09-13] MEDS ORDERED: Dexameth. Sod Phosp. 10 MG/ML (CHEMO USE ONLY) ONE (13:36)
== END 2022-09-13 14:56 | disposition home or self-care (01) ==
LOC: ERS 12:07
DX: M25.512 Pain in left shoulder (principal); M54.32 Sciatica, left side; I10 Essential (primary) hypertension; E11.40 Type 2 diabetes mellitus with diabetic neuropathy, unspecified
CPT/HCPCS: 93005; 96372; J1100; J1885

== ENCOUNTER 2022-12-04 23:11 | Emergency (ER) | payer MEDICARE, OTHER, MEDICAID ==
[2022-12-05] MEDS ORDERED: Witch Hazel-Glycerin 1 EACH JAR TOP SCH (00:15)
== END 2022-12-05 00:58 | disposition home or self-care (01) ==
LOC: ERS 23:11
DX: K59.00 Constipation, unspecified (principal); L03.032 Cellulitis of left toe; F17.210 Nicotine dependence, cigarettes, uncomplicated; E11.40 Type 2 diabetes mellitus with diabetic neuropathy, unspecified; I10 Essential (primary) hypertension
CPT/HCPCS: 74018

== ENCOUNTER 2022-12-16 15:25 | Outpatient (CLI) | payer MEDICARE, OTHER, MEDICAID | END 2022-12-16 15:26 | disposition home or self-care (01) | LOC: RAD 15:25 | PROVIDERS: ATTEND Family Medicine | DX: M25.551 Pain in right hip (principal); M25.552 Pain in left hip; M16.0 Bilateral primary osteoarthritis of hip ==

== ENCOUNTER 2022-12-29 15:16 | Emergency (ER) | payer MEDICARE, OTHER ==
[2022-12-29 16:15] LABS: #Eosinphils 0.2 thou/uL (0.0-0.7); #Monocytes 0.4 thou/uL (0.11-0.59); #Neutrophils 4.9 thou/uL (1.40-6.50); %Basophils 0.5 % (0.0-1.0); %Eosinophils 2.3 % (0.0-10.0); %Lymphocytes 26.3 % (21.0-51.0); %Monocytes 5.5 % (0.0-10.0); %Neutrophils 65.1 % (42.0-75.0); Hematocrit 42.9 % (36.0-47.0); Hemoglobin 14.2 g/dL (12.0-16.0); Mean Corpuscular HGB CONC 33.1 g/dL (32.0-36.0); Mean Corpuscular Hemoglobin 30.4 pg (27.0-31.0); Mean Corpuscular Volume 91.9 fl (78.0-98.0); Mean Platelet Volume 9.1 fL (7.4-10.4); Platelet Count 273 10x3/uL (130-400); RBC Distribution Width 15.2 % (11.5-14.5); Red Blood Cell (RBC) Count 4.67 mill/uL (4.20-5.40); White Blood Cell (WBC) Count 7.5 10x3/uL (4.8-10.8)
[2022-12-29 16:37] LABS: Anion Gap 12 mmol/L (10-20); BUN (Urea Nitrogen) 6 mg/dL (9.8-20.1); Calc. Creatinine Clearance 0 mL/min (70-130); Carbon Dioxide 27 mmol/L (23-31); Chloride 104 mmol/L (98-107); Estimated GFR 84; Sodium 139 mmol/L (136-145)
[2022-12-29 16:38] LABS: ALT (SGPT) 14 U/L (8-55); AST (SGOT) 20 U/L (5-34); Albumin 3.6 g/dL (3.4-4.8); Alkaline Phosphatase 137 U/L (40-110); Bilirubin, Total 0.3 mg/dL (0.2-1.2); Globulin 3.3 g/dL (2.4-3.5); Glucose 104 mg/dL (80-115); Lipase 10 U/L (8-78); Protein, Total 6.9 g/dL (5.8-8.1)
[2022-12-29] MEDS ORDERED: Vancomycin 1 GM/200 ML (FROZEN) BAG ONE (17:25)
== END 2022-12-29 19:06 | disposition home or self-care (01) ==
LOC: ERS 15:16
DX: L03.032 Cellulitis of left toe (principal); F17.200 Nicotine dependence, unspecified, uncomplicated; E11.40 Type 2 diabetes mellitus with diabetic neuropathy, unspecified
CPT/HCPCS: 73630; 80053; 83690; 83880; 85025; 87040; 87070; 87205; 96365; 99283; J3370; 36415

== ENCOUNTER 2023-01-18 14:59 | Outpatient (CLI) | payer MEDICARE, MEDICAID ==
[2023-01-18 16:11] LABS: INR-International Normal Ratio 0.9; PTT 26.2 sec (22.0-33.0); Prothrombin Time 9.8 sec (9.5-12.1)
[2023-01-18 16:16] LABS: #Basophils 0.1 10x3/uL (0.0-0.2); #Eosinphils 0.3 10x3/uL (0.0-0.5); #Monocytes 0.5 10x3/uL (0.0-1.1); %Basophils 0.7 % (0.0-2.0); %Eosinophils 4.3 % (0.0-6.0); %Lymphocytes 27.8 % (18.0-47.0); %Monocytes 7.3 % (0.0-10.0); %Neutrophils 59.8 % (40.0-75.0); Hematocrit 39.4 % (34.9-44.5); Mean Corpuscular Hemoglobin 30.2 pg (27.0-33.0); Mean Corpuscular Volume 91.6 fl (81.6-98.3); Mean Platelet Volume 9.3 fl (7.4-10.4); Platelet Count 304 10x3/uL (150-450); RBC Distribution Width 15.7 % (11.5-14.5); White Blood Cell (WBC) Count 6.7 10x3/uL (3.5-10.5)
[2023-01-18 16:38] LABS: Anion Gap 14 mmol/L (10-20); BUN (Urea Nitrogen) 10 mg/dL (9.8-20.1); Calc. Creatinine Clearance 0 mL/min (70-130); Calcium 9.1 mg/dL (7.8-10.44); Carbon Dioxide 26 mmol/L (23-31); Chloride 102 mmol/L (98-107); Estimated GFR 90; Glucose 95 mg/dL (80-115); Potassium 4.1 mmol/L (3.5-5.1); Sodium 138 mmol/L (136-145)
== END 2023-01-18 15:00 | disposition home or self-care (01) ==
LOC: LABBT 14:59
PROVIDERS: ATTEND Orthopaedic Surgery
DX: Z01.818 Encounter for other preprocedural examination (principal); M75.102 Unspecified rotator cuff tear or rupture of left shoulder, not specified as traumatic
CPT/HCPCS: 80048; 85025; 85610; 85730; 93005; 93010

== ENCOUNTER 2023-01-21 05:28 | Day surgery (SDC) | payer MEDICARE, MEDICAID ==
[2023-01-18 15:25] VITALS: BMI 25.2
[2023-01-21] MEDS ORDERED: Vancomycin 1 GM/200 ML (FROZEN) BAG ONE (06:03)
[2023-01-21] MEDS ORDERED: Tranexamic Acid 1,000 MG/10 ML VIAL ONE (06:03)
[2023-01-21] MEDS ORDERED: Sodium Chloride 0.9% 100 ML ONE (06:03)
[2023-01-21] MEDS ORDERED: fentaNYL PF 100 MCG/2 ML SYRINGE ONE (06:37)
[2023-01-21] MEDS ORDERED: HYDROmorphone 0.5 MG/0.5 ML SYRINGE ONE (06:37)
[2023-01-21] MEDS ORDERED: Ropivacaine 0.2% HCl/PF 0 ML ONE (06:40)
[2023-01-21] MEDS ORDERED: Midazolam HCl 2 mg/2 ml Vial ONE (06:40)
[2023-01-21] MEDS ORDERED: Ropivacaine 0.5% HCl/PF (150 MG/30 ML VIAL) ONE (06:40)
[2023-01-21] MEDS ORDERED: fentaNYL 50 mcg/mL 1 mL Vial ONE (06:40)
== END 2023-01-21 07:27 | disposition home or self-care (01) ==
LOC: SDC 05:28
PROVIDERS: ATTEND Orthopaedic Surgery
DX: M75.102 Unspecified rotator cuff tear or rupture of left shoulder, not specified as traumatic (principal); Z53.8 Procedure and treatment not carried out for other reasons; E07.9 Disorder of thyroid, unspecified; M79.7 Fibromyalgia; E11.9 Type 2 diabetes mellitus without complications; I10 Essential (primary) hypertension; F17.200 Nicotine dependence, unspecified, uncomplicated; Z90.49 Acquired absence of other specified parts of digestive tract; Z90.89 Acquired absence of other organs; Z89.429 Acquired absence of other toe(s), unspecified side; Z79.82 Long term (current) use of aspirin; Z79.899 Other long term (current) drug therapy
CPT/HCPCS: J1170; J2250; J2795; J3010; J3370-JW; J3490

== ENCOUNTER 2023-03-22 15:40 | Outpatient (CLI) | payer MEDICARE, MEDICAID ==
[2023-03-22 17:48] LABS: Anion Gap 15 mmol/L (10-20); BUN (Urea Nitrogen) 9 mg/dL (9.8-20.1); Calc. Creatinine Clearance 0 mL/min (70-130); Calcium 9.2 mg/dL (7.8-10.44); Carbon Dioxide 23 mmol/L (23-31); Chloride 105 mmol/L (98-107); Estimated GFR 88; Glucose 90 mg/dL (80-115); Potassium 4.1 mmol/L (3.5-5.1); Sodium 139 mmol/L (136-145)
[2023-03-22 17:50] LABS: INR-International Normal Ratio 0.9; Prothrombin Time 10.2 sec (9.5-12.1)
[2023-03-22 17:54] LABS: #Eosinphils 0.3 10x3/uL (0.0-0.5); #Monocytes 0.4 10x3/uL (0.0-1.1); #Neutrophils 4.4 10x3/uL (1.5-8.4); %Basophils 0.6 % (0.0-2.0); %Eosinophils 4.1 % (0.0-6.0); %Lymphocytes 24.3 % (18.0-47.0); %Monocytes 5.8 % (0.0-10.0); %Neutrophils 65.1 % (40.0-75.0); Hematocrit 43.3 % (34.9-44.5); Hemoglobin 14.5 g/dL (12.0-15.5); Mean Corpuscular HGB CONC 33.5 g/dL (32.0-36.0); Mean Corpuscular Hemoglobin 30.7 pg (27.0-33.0); Mean Corpuscular Volume 91.7 fl (81.6-98.3); Mean Platelet Volume 10.2 fl (7.4-10.4); Platelet Count 265 10x3/uL (150-450); RBC Distribution Width 12.6 % (11.5-14.5); Red Blood Cell (RBC) Count 4.72 10x6/uL (3.90-5.03); White Blood Cell (WBC) Count 6.8 10x3/uL (3.5-10.5)
== END 2023-03-22 15:41 | disposition home or self-care (01) ==
LOC: LABBT 15:40
PROVIDERS: ATTEND Orthopaedic Surgery
DX: Z01.818 Encounter for other preprocedural examination (principal); M75.102 Unspecified rotator cuff tear or rupture of left shoulder, not specified as traumatic
CPT/HCPCS: 80048; 85025; 85610; 93005; 93010

== ENCOUNTER 2023-03-25 05:56 | Observation (INO) | payer MEDICARE, MEDICAID ==
[2023-03-22 16:13] VITALS: BMI 25.2
[2023-03-25] MEDS ORDERED: fentaNYL PF 100 MCG/2 ML SYRINGE ONE (06:06)
[2023-03-25] MEDS ORDERED: Lidocaine 4% Topical Sol 50 ML BOT ONE (06:06)
[2023-03-25] MEDS ORDERED: Phenylephrine 10 MG/ML VIAL ONE (06:08)
[2023-03-25] MEDS ORDERED: Sodium Chloride 0.9% 100 ML ONE ×2 (06:13→06:59)
[2023-03-25] MEDS ORDERED: Vancomycin 1 GM/200 ML (FROZEN) BAG ONE (06:13)
[2023-03-25] MEDS ORDERED: Tranexamic Acid 1,000 MG/10 ML VIAL ONE (06:13)
[2023-03-25] MEDS ORDERED: Midazolam HCl 2 mg/2 ml Vial ONE (06:41)
[2023-03-25] MEDS ORDERED: Ondansetron PF 4 MG/2 ML Vial ONE (06:50)
[2023-03-25] MEDS ORDERED: PHENYLEPHRINE-NS 100 MCG/ML 10 ML SYRINGE ONE (06:50)
[2023-03-25] MEDS ORDERED: Rocuronium Bromide 10 MG/ML (10ML VIAL) ONE (06:50)
[2023-03-25] MEDS ORDERED: PROPOFOL 200 MG/20 ML VIAL ONE (06:50)
[2023-03-25] MEDS ORDERED: Dexamethasone 20 MG/5 ML VIAL ONE (06:50)
[2023-03-25] MEDS ORDERED: CEFAZOLIN 2 GM VIAL ONE (06:59)
[2023-03-25] MEDS ORDERED: Ropivacaine 0.2% HCl/PF 20 ML ONE (07:24)
[2023-03-25] MEDS ORDERED: Promethazine HCl 25 MG/ML VIAL IM PRN ×2 (07:56→08:15)
[2023-03-25] MEDS ORDERED: Ondansetron HCl/PF 4 MG/2 ML Vial IVP PRN (07:56)
[2023-03-25] MEDS ORDERED: Ropivacaine 0.2% 550 ML 550 ML NERVE BLCK SCH (08:15)
[2023-03-25] MEDS ORDERED: traMADol HCl 50 MG TAB PO PRN ×2 (08:15)
[2023-03-25] MEDS ORDERED: Ondansetron PF 4 MG/2 ML Vial IVP PRN (08:15)
[2023-03-25] MEDS ORDERED: Ketorolac Tromethamine 30 MG/ML VIAL IVP PRN (08:15)
[2023-03-25] MEDS ORDERED: HYDROcodone/Acetaminophen 10/325 mg Tablet PO PRN (08:15)
[2023-03-25] MEDS ORDERED: Zolpidem Tartrate 5 MG TAB PO PRN (08:15)
[2023-03-25] MEDS ORDERED: SUGAMMADEX SODIUM 200 MG/2 ML VIAL ONE (08:28)
[2023-03-25] MEDS ORDERED: Famotidine 20 MG TAB PO SCH (09:00)
[2023-03-25] MEDS ORDERED: diphenhydrAMINE 50 MG CAP PO PRN (09:34)
[2023-03-25] MEDS ORDERED: Methocarbamol 1 GM/10 ML VIAL SLOW IVP PRN (09:34)
[2023-03-25] MEDS ORDERED: Methocarbamol 500 MG TAB PO PRN (09:34)
[2023-03-25] MEDS ORDERED: Bisacodyl 10 MG SUPP PR PRN (09:34)
[2023-03-25] MEDS ORDERED: Acetaminophen 325 MG TAB PO PRN (09:34)
[2023-03-25] MEDS ORDERED: fentaNYL 50 mcg/mL 1 mL Vial ONE (10:43)
[2023-03-25] MEDS: Sodium Chloride 0.9% 1,000 ML IV SCH (12:02)
[2023-03-25] MEDS: HYDROcodone/Acetaminophen 10/325 mg Tablet PO PRN ×3 (13:12→22:38)
[2023-03-25] MEDS: CEFAZOLIN 2 GM in Sodium Chloride 0.9% 100 ML IVPB SCH ×2 (15:26→21:50)
[2023-03-25] MEDS ORDERED: FLU VACC QS2023(65UP)/MF59C/PF 60 MCG/0.5 ML SYRINGE IM ONE (18:00)
[2023-03-25] MEDS: Famotidine 20 MG TAB PO SCH (21:50)
[2023-03-26] MEDS: Sodium Chloride 0.9% 1,000 ML IV SCH (00:55)
[2023-03-26] MEDS: HYDROcodone/Acetaminophen 10/325 mg Tablet PO PRN ×2 (04:55→12:02)
[2023-03-26] MEDS: Famotidine 20 MG TAB PO SCH (08:41)
[2023-03-26 11:46] VITALS: BP 151/86; TEMP 98.1
== END 2023-03-26 12:42 | disposition home or self-care (01) ==
LOC: SDC 05:56 → SURG B 11:09
PROVIDERS: ADMIT Orthopaedic Surgery; ATTEND Orthopaedic Surgery
PROC: 0RRK00Z Replacement of Left Shoulder Joint with Reverse Ball and Socket Synthetic Substitute, Open Approach (ICD-10-PCS; principal; 2023-03-25)
DX: M75.102 Unspecified rotator cuff tear or rupture of left shoulder, not specified as traumatic (principal); M66.812 Spontaneous rupture of other tendons, left shoulder; I10 Essential (primary) hypertension; E11.9 Type 2 diabetes mellitus without complications; F17.210 Nicotine dependence, cigarettes, uncomplicated; Z88.5 Allergy status to narcotic agent; Z90.49 Acquired absence of other specified parts of digestive tract; Z79.899 Other long term (current) drug therapy
CPT/HCPCS: 23472; 97110; 97116 ×2; 97530; 97535; A4306; C1713 ×7; C1776 ×3; J3010; J3370; J1100; J1885; J2250; J2370; J2405; J2704; J2795; J3490; J7050

== ENCOUNTER 2024-01-11 08:42 | Inpatient (IN) | payer MEDICARE, MEDICAID ==
[2024-01-07 13:39] VITALS: BMI 26.2
[2024-01-11] MEDS ORDERED: CEFAZOLIN 2 GM VIAL ONE (09:30)
[2024-01-11] MEDS ORDERED: Tranexamic Acid 1,000 MG/10 ML VIAL ONE (09:30)
[2024-01-11] MEDS ORDERED: Sodium Chloride 0.9% 200 ML ONE (09:31)
[2024-01-11] MEDS ORDERED: Vancomycin 1 GM/200 ML (FROZEN) BAG ONE (09:31)
[2024-01-11] MEDS ORDERED: Midazolam HCl 2 mg/2 ml Vial ONE (10:10)
[2024-01-11] MEDS ORDERED: PROPOFOL 20 ML ONE (10:10)
[2024-01-11] MEDS ORDERED: fentaNYL 50 mcg/mL 1 mL Vial ONE ×5 (10:10→14:54)
[2024-01-11] MEDS ORDERED: Phenylephrine 10 MG/ML VIAL ONE (11:06)
[2024-01-11] MEDS ORDERED: Sodium Chloride 0.9% 100 ML ONE (11:09)
[2024-01-11] MEDS ORDERED: Acetaminophen 325 MG TAB PO PRN (12:10)
[2024-01-11] MEDS ORDERED: Ondansetron PF 4 MG/2 ML Vial IVP PRN (12:10)
[2024-01-11] MEDS ORDERED: Promethazine HCl 25 MG/ML VIAL IM PRN (12:10)
[2024-01-11] MEDS ORDERED: diphenhydrAMINE 25 MG CAP PO PRN (12:10)
[2024-01-11] MEDS ORDERED: Ketorolac Tromethamine 30 MG (1 mL) VIAL ONE (14:33)
[2024-01-11] MEDS ORDERED: traMADol HCl 50 MG TAB PO PRN (15:48)
[2024-01-11] MEDS ORDERED: HYDROcodone/Acetaminophen 10/325 mg Tablet PO PRN (15:49)
[2024-01-11] MEDS ORDERED: Albuterol 200 PUFF (6.7GM INHALER) INH PRN (15:50)
[2024-01-11] MEDS: fentaNYL 50 mcg/mL 1 mL Vial SLOW IVP SCH (16:03)
[2024-01-11] MEDS: HYDROcodone/Acetaminophen 10/325 mg Tablet PO PRN (16:08)
[2024-01-11] MEDS: Sodium Chloride 0.9% 1,000 ML IV SCH (17:19)
[2024-01-11] MEDS: CEFAZOLIN 2 GM in Sodium Chloride 0.9% 100 ML IVPB SCH (18:45)
[2024-01-11] MEDS: Gabapentin 300 MG CAP PO SCH (20:27)
[2024-01-11] MEDS: Aspirin 81 mg Enteric Coated Tablet PO SCH (20:27)
[2024-01-12] MEDS: Zolpidem Tartrate 5 MG TAB PO PRN (01:53)
[2024-01-12] MEDS: Sodium Chloride 0.9% 100 ML ONE (01:55)
[2024-01-12] MEDS: traMADol HCl 50 MG TAB PO PRN (03:15)
[2024-01-12 07:39] LABS: Hematocrit 38.7 % (36.0-47.0); Hemoglobin 12.7 g/dL (12.0-16.0); Mean Corpuscular HGB CONC 32.8 g/dL (32.0-36.0); Mean Corpuscular Hemoglobin 30.2 pg (27.0-31.0); Mean Corpuscular Volume 92.1 fL (78.0-98.0); Mean Platelet Volume 9.2 fL (7.4-10.4); Platelet Count 209 10x3/uL (130-400); RBC Distribution Width 14.8 % (11.5-14.5)
[2024-01-12] MEDS: Senokot S 8.6-50 MG TAB PO SCH (08:57)
[2024-01-12] MEDS: Ferrous Gluconate 324 MG TAB PO SCH (08:58)
[2024-01-12] MEDS: Multivitamin W/ Minerals 1 TAB PO SCH (08:58)
[2024-01-12 17:22] VITALS: BMI 26.2
[2024-01-13 06:51] LABS: Hematocrit 39.8 % (36.0-47.0); Hemoglobin 13.1 g/dL (12.0-16.0); Mean Corpuscular HGB CONC 32.9 g/dL (32.0-36.0); Mean Corpuscular Hemoglobin 29.4 pg (27.0-31.0); Mean Corpuscular Volume 89.4 fL (78.0-98.0); Mean Platelet Volume 9.9 fL (7.4-10.4); Platelet Count 217 10x3/uL (130-400); RBC Distribution Width 14.6 % (11.5-14.5); Red Blood Cell (RBC) Count 4.45 mill/uL (4.20-5.40)
[2024-01-13] MEDS ORDERED: ALPRAZolam 0.25 MG TAB PO PRN (10:25)
[2024-01-13] MEDS: Sodium Chloride 0.9% 1,000 ML IV SCH (12:00)
[2024-01-13] MEDS: Polyethylene Glycol 3350 17 GM Packet PO SCH ×2 (12:01)
[2024-01-13 14:47] LABS: ALT (SGPT) 13 U/L (8-55); AST (SGOT) 23 U/L (5-34); Albumin 2.4 g/dL (3.4-4.8); Alkaline Phosphatase 147 U/L (40-110); Anion Gap 17 mmol/L (10-20); BUN (Urea Nitrogen) 10 mg/dL (9.8-20.1); Calc. Creatinine Clearance 92 mL/min (70-130); Calcium 8.9 mg/dL (7.8-10.44); Carbon Dioxide 21 mmol/L (23-31); Chloride 104 mmol/L (98-107); Estimated GFR 98; Globulin 3.4 g/dL (2.4-3.5); Glucose 68 mg/dL (80-115); Potassium 3.8 mmol/L (3.5-5.1); Protein, Total 5.8 g/dL (5.8-8.1); Sodium 138 mmol/L (136-145)
[2024-01-13] MEDS: traZODone HCl 50 MG TAB PO SCH (20:35)
[2024-01-14 05:43] LABS: #Basophils Less than 0.03 10x3/uL (0.0-0.2); %Basophils 0.3 % (0.0-1.0); %Eosinophils 3.6 % (0.0-10.0); %Monocytes 4.6 % (0.0-10.0); %Neutrophils 76.1 % (42.0-75.0); Hemoglobin 12.8 g/dL (12.0-16.0); Mean Corpuscular Hemoglobin 29.8 pg (27.0-31.0); Mean Corpuscular Volume 93.2 fL (78.0-98.0); Mean Platelet Volume 9.5 fL (7.4-10.4); Platelet Count 240 10x3/uL (130-400); RBC Distribution Width 14.9 % (11.5-14.5); Red Blood Cell (RBC) Count 4.29 mill/uL (4.20-5.40)
[2024-01-14 05:44] LABS: Hemoglobin 12.9 g/dL (12.0-16.0); Mean Corpuscular HGB CONC 32.3 g/dL (32.0-36.0); Mean Corpuscular Hemoglobin 30.2 pg (27.0-31.0); Mean Corpuscular Volume 93.7 fL (78.0-98.0); Mean Platelet Volume 9.5 fL (7.4-10.4); Platelet Count 232 10x3/uL (130-400); Red Blood Cell (RBC) Count 4.27 mill/uL (4.20-5.40)
[2024-01-14 06:11] LABS: ALT (SGPT) 11 U/L (8-55); AST (SGOT) 17 U/L (5-34); Albumin 2.2 g/dL (3.4-4.8); Alkaline Phosphatase 142 U/L (40-110); Anion Gap 14 mmol/L (10-20); BUN (Urea Nitrogen) 11 mg/dL (9.8-20.1); Bilirubin, Total 0.5 mg/dL (0.2-1.2); Calc. Creatinine Clearance 79 mL/min (70-130); Calcium 8.9 mg/dL (7.8-10.44); Carbon Dioxide 26 mmol/L (23-31); Chloride 105 mmol/L (98-107); Estimated GFR 94; Globulin 3.6 g/dL (2.4-3.5); Glucose 122 mg/dL (80-115); Potassium 3.7 mmol/L (3.5-5.1); Protein, Total 5.8 g/dL (5.8-8.1); Sodium 141 mmol/L (136-145)
[2024-01-14 11:23] VITALS: TEMP 98.7
[2024-01-14 15:33] VITALS: BP 121/81
== END 2024-01-14 15:32 | disposition home or self-care (01) | DRG 470 ==
LOC: SDC 08:42 → SURG A 15:27 → OBSVTOIN 01-13 07:20
PROVIDERS: ADMIT Orthopaedic Surgery; ATTEND Orthopaedic Surgery
PROC: 0SR903Z Replacement of Right Hip Joint with Ceramic Synthetic Substitute, Open Approach (ICD-10-PCS; principal; 2024-01-11)
DX: M16.11 Unilateral primary osteoarthritis, right hip (principal); E11.9 Type 2 diabetes mellitus without complications; I10 Essential (primary) hypertension; F17.210 Nicotine dependence, cigarettes, uncomplicated; Z79.899 Other long term (current) drug therapy; Z90.49 Acquired absence of other specified parts of digestive tract; Z96.612 Presence of left artificial shoulder joint; Z88.5 Allergy status to narcotic agent; Z79.891 Long term (current) use of opiate analgesic; Z79.1 Long term (current) use of non-steroidal anti-inflammatories (NSAID); R50.82 Postprocedural fever; F32.A Depression, unspecified
CPT/HCPCS: 36415; 72170; 80053; 84145; 85027; 96374; 96375; 96376; C1713; C1776; G0378; J1885; J2250; J2371; J2704; J3010; J3370-JW; J7030

== ENCOUNTER 2024-05-23 05:20 | Emergency (ER) | payer MEDICARE, OTHER ==
[2024-05-23] MEDS ORDERED: fentaNYL 50 mcg/mL 1 mL Vial ONE (06:32)
[2024-05-23 06:38] LABS: #Basophils Less than 0.03 10x3/uL (0.0-0.2); #Eosinophils Less than 0.03 10x3/uL (0.0-0.7); %Basophils 0.2 % (0.0-1.0); %Eosinophils 0.1 % (0.0-10.0); %Lymphocytes 7.4 % (21.0-51.0); %Monocytes 5.7 % (0.0-10.0); %Neutrophils 86.2 % (42.0-75.0); Hematocrit 41.7 % (36.0-47.0); Hemoglobin 14.3 g/dL (12.0-16.0); Mean Corpuscular HGB CONC 34.3 g/dL (32.0-36.0); Mean Corpuscular Hemoglobin 28.4 pg (27.0-31.0); Mean Corpuscular Volume 82.9 fL (78.0-98.0); Mean Platelet Volume 9.5 fL (7.4-10.4); Platelet Count 252 10x3/uL (130-400); RBC Distribution Width 14.4 % (11.5-14.5); Red Blood Cell (RBC) Count 5.03 mill/uL (4.20-5.40)
[2024-05-23 06:54] LABS: ALT (SGPT) 12 U/L (8-55); AST (SGOT) 18 U/L (5-34); Albumin 3.3 g/dL (3.4-4.8); Alkaline Phosphatase 159 U/L (40-110); Anion Gap 16 mmol/L (10-20); BUN (Urea Nitrogen) 8 mg/dL (9.8-20.1); Bilirubin, Total 0.9 mg/dL (0.2-1.2); Calc. Creatinine Clearance 0 mL/min (70-130); Calcium 9.7 mg/dL (7.8-10.44); Carbon Dioxide 23 mmol/L (23-31); Chloride 100 mmol/L (98-107); Estimated GFR 94; Globulin 4.7 g/dL (2.4-3.5); Glucose 130 mg/dL (80-115); Potassium 3.7 mmol/L (3.5-5.1); Sodium 135 mmol/L (136-145)
[2024-05-23 06:58] LABS: Troponin I Less than 0.010 ng/mL (< 0.028)
[2024-05-23] MEDS ORDERED: Ketorolac Tromethamine 30 MG (1 mL) VIAL ONE (08:20)
== END 2024-05-23 10:02 | disposition home or self-care (01) ==
LOC: ERS 05:20
DX: M54.2 Cervicalgia (principal); I10 Essential (primary) hypertension
CPT/HCPCS: 70450; 70480; 72125; 80053; 84484; 85025; 86141; 93005; J1885; J3010; 96374; 96375